=== PATIENT | male | born 1970 | race Caucasian/White ===

== ENCOUNTER 2018-06-05 21:35 | Inpatient (IN) ==
[2018-06-05] MEDS ORDERED: Morphine Inj 4 MG/ML Vial IV.PUSH ONE (21:45)
[2018-06-05] MEDS ORDERED: Sod Chloride 0.9% Inj 1,000 ML IV.CONT SCH (21:45)
[2018-06-05 22:38] LABS: Baso % (Auto) 0.2 % (0.0-2.0); Eos # (Auto) 0.1 th/mm3 (0.0-0.4); Eos % (Auto) 0.9 % (0.0-4.0); Hematocrit 44.1 % (39.0-51.0); Hemoglobin 15.5 gm/dL (13.0-17.0); Lymph # (Auto) 2.9 th/mm3 (1.0-4.8); Lymph % (Auto) 24.4 % (9.0-44.0); Mean Corpuscular HGB Conc 35.1 % (32.0-36.0); Mean Corpuscular Hemoglobin 30.1 pg (27.0-34.0); Mean Corpuscular Volume 85.8 fL (80.0-100.0); Mean Platelet Volume 8.1 fL (7.0-11.0); Mono # (Auto) 0.6 th/mm3 (0.0-0.9); Neut # (Auto) 8.3 th/mm3 (1.8-7.7); Neut % (Auto) 69.5 % (16.0-70.0); Platelet Count 153 th/mm3 (150-450); Red Blood Count 5.14 mil/mm3 (4.50-5.90); Red Cell Distribution Width 13.5 % (11.6-17.2)
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
[2018-06-05 22:50] LABS: INR 1.1 Ratio; Prothrombin Time 11.6 sec (9.8-11.6)
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
[2018-06-05] MEDS ORDERED: Morphine Sulfate Inj 8 MG/ML Vial IV.PUSH ONE (23:22)
[2018-06-05] MEDS ORDERED: Morphine Sulfate Inj 8 MG/ML Vial ONE (23:23)
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
[2018-06-06] MEDS ORDERED: Morphine Inj 4 MG/ML Vial IV.PUSH PRN (02:00)
[2018-06-06] MEDS: Morphine Inj 4 MG/ML Vial IV.PUSH PRN ×6 (02:13→21:57)
[2018-06-06] MEDS ORDERED: Influenza (Quadrivalent) Vaccine 0.5 ML Syringe IM ONE (05:15)
[2018-06-06] MEDS: Pantoprazole Inj 40 MG Vial IV.PUSH SCH (06:56)
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
[2018-06-06] MEDS: Docusate Sodium 100 MG Capsule PO SCH ×2 (08:35→20:00)
[2018-06-06] MEDS: Multivitamin Inj 10 ML, Thiamine Inj 100 MG, Folic Acid Inj 1 MG in Sodium Chlor 0.9% I... IV.SIG SCH (10:39)
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
--- NOTE | 2018-06-06 14:29 | OTSOAPIP ---
TIME SESSION COMPLETED: 1430 TREATMENT TIME: 0 MINS. CHART REVIEWED. SPOKE WITH BEREKET ALBA PATIENT TO REMAIN BEDREST UNTIL NEUROSURGERY CONSULT. WILL REATTEMPT ONCE NEUROSURGERY ASSESSMENT AND RECOMMENDATIONS. Therapist: Poornima Pennington Signature on file
[2018-06-07] MEDS: Morphine Inj 4 MG/ML Vial IV.PUSH PRN ×6 (02:31→22:36)
[2018-06-07] MEDS: Chlorhexidine Gluconate 2% 1 Pack (2 Cloths) TOPICAL SCH (03:36)
[2018-06-07] MEDS ORDERED: Chlorhexidine Gluconate 2% 1 Pack (2 Cloths) TOPICAL PRN (04:00)
[2018-06-07] MEDS: Pantoprazole Inj 40 MG Vial IV.PUSH SCH ×2 (05:20→06:06)
[2018-06-07 05:43] LABS: Baso % (Auto) 0.3 % (0.0-2.0); Eos # (Auto) 0.1 th/mm3 (0.0-0.4); Eos % (Auto) 1.3 % (0.0-4.0); Hemoglobin 14.7 gm/dL (13.0-17.0); Lymph # (Auto) 1.8 th/mm3 (1.0-4.8); Lymph % (Auto) 23.1 % (9.0-44.0); Mean Corpuscular HGB Conc 35.1 % (32.0-36.0); Mean Corpuscular Hemoglobin 30.3 pg (27.0-34.0); Mean Corpuscular Volume 86.6 fL (80.0-100.0); Mean Platelet Volume 8.2 fL (7.0-11.0); Mono # (Auto) 0.6 th/mm3 (0.0-0.9); Mono % (Auto) 7.2 % (0.0-8.0); Neut # (Auto) 5.3 th/mm3 (1.8-7.7); Neut % (Auto) 68.1 % (16.0-70.0); Platelet Count 118 th/mm3 (150-450); Red Blood Count 4.86 mil/mm3 (4.50-5.90); Red Cell Distribution Width 13.4 % (11.6-17.2); White Blood Count 7.8 th/mm3 (4.0-11.0)
[2018-06-07 06:10] LABS: Calcium 8.1 mg/dL (8.5-10.1); Carbon Dioxide 25.1 meq/L (21.0-32.0); Potassium 3.5 meq/L (3.5-5.1)
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
[2018-06-07] MEDS: Docusate Sodium 100 MG Capsule PO SCH ×2 (09:44→21:21)
[2018-06-07] MEDS: Multivitamin Inj 10 ML, Thiamine Inj 100 MG, Folic Acid Inj 1 MG in Sodium Chlor 0.9% I... IV.SIG SCH (10:02)
--- NOTE | 2018-06-07 12:59 | MR ---
EXAM DATE: 06/07/2018 12:41 PM EST AGE/SEX: 47 years / Male INDICATIONS: . Multiple thoracic spine fractures. CLINICAL DATA: This is the patient's subsequent encounter. Patient reports that signs and symptoms h ave been present for 3 days and indicates a pain score of 7/10. MEDICAL/SURGICAL HISTORY: None. . Left foot surgery. Left hand surgery. COMPARISON: [facility] [place], CT THORACIC SPINE W CONTRAST, 06/05/2018. . TECHNIQUE: Multiplanar, multisequence MRI of the thoracic spine was performed. FINDINGS: Sagittal T1 and 2-weighted imaging of the thoracic spine is provided. These demonstrate a moderate se verity compression fracture of T5 with minimal bony retropulsion. There is mild compression fracture of the inferior endplate of T4. There is no associated retropulsion. There is minimal marrow edema wi thin the T3 vertebral body on the STIR imaging sequences as well. The sagittal inversion recovery images do suggest some subtle increased T2 signal within the cord acr oss the level of T5. The posterior longitudinal ligament appears intact crosses level. The anterior longitudinal ligament does appear disrupted across the T4-T5 disc level. The remainder of the thoracic vertebral bodies are intact. The disc appear well hydrated at all level s. Axial imaging through the disc spaces is provided. These again demonstrate the minimal bony retropuls ion at T5. The residual thecal space appears narrowed but adequate. The axial imaging does suggest so me subtle increased T2 signal within the cord through this area. The thecal sac is otherwise unremarkable in appearance throughout the remainder of the levels visuali zed. Note is made of some soft tissue swelling and hemorrhage in the paraspinous soft tissues extending fr om approximately T3 down to T6. CONCLUSION: 1. Moderate severity compression fracture of T5 with some minimal bony retropulsion. There is howeve r some subtle increased T2 signal within the cord across this level. There is only minimal narrowing of the thecal sac. 2. The anterior longitudinal ligament appears disrupted across the T4/T5 level. 3. The STIR imaging sequences demonstrate marrow edema within the T3 and T4 vertebral body. This wou ld suggest mild compression fracture at these levels as well. 4. Swelling and a small amount of hemorrhage in the paraspinous soft tissues. Electronically signed by: Jonas Ham MD 06/07/2018 12:57 PM EST
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
[2018-06-08] MEDS: Morphine Inj 4 MG/ML Vial IV.PUSH PRN ×6 (02:46→20:59)
[2018-06-08] MEDS: Chlorhexidine Gluconate 2% 1 Pack (2 Cloths) TOPICAL SCH (03:21)
[2018-06-08] MEDS ORDERED: Chlorhexidine Gluconate 2% 1 Pack (2 Cloths) TOPICAL ONE (03:38)
[2018-06-08] MEDS ORDERED: Sodium Chlor 0.9% Inj 500 ML IV.SIG SCH (04:00)
[2018-06-08] MEDS: Pantoprazole Inj 40 MG Vial IV.PUSH SCH (06:16)
[2018-06-08] MEDS: Multivitamin Inj 10 ML, Thiamine Inj 100 MG, Folic Acid Inj 1 MG in Sodium Chlor 0.9% I... IV.SIG SCH (08:17)
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
[2018-06-08] MEDS: diazePAM 5 MG Tablet PO SCH ×3 (12:40→20:58)
--- NOTE | 2018-06-08 13:49 | XR ---
EXAM DATE: 06/08/2018 1:46 PM EST AGE/SEX: 47 years / Male INDICATIONS: Fracture. Xray done standing with TLSO brace. CLINICAL DATA: This is the patient's initial encounter. Patient reports that signs and symptoms have been present for 3 days and indicates a pain score of 10/10. MEDICAL/SURGICAL HISTORY: None. None. [place] [facility] [place]. . FINDINGS: Minimal anterior wedging of T4 and T5 in anatomic alignment in the sagittal projection. CONCLUSION: Anatomic alignment sagittal projection while standing. Electronically signed by: Taj Ham MD 06/08/2018 1:47 PM EST
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
[2018-06-08] MEDS: Docusate Sodium 100 MG Capsule PO SCH ×2 (16:34→20:58)
[2018-06-09] MEDS: Morphine Inj 4 MG/ML Vial IV.PUSH PRN ×4 (00:14→20:54)
[2018-06-09] MEDS: Chlorhexidine Gluconate 2% 1 Pack (2 Cloths) TOPICAL SCH (03:00)
[2018-06-09 04:10] LABS: Baso % (Auto) 0.2 % (0.0-2.0); Eos # (Auto) 0.2 th/mm3 (0.0-0.4); Eos % (Auto) 3.1 % (0.0-4.0); Hematocrit 42.5 % (39.0-51.0); Hemoglobin 14.4 gm/dL (13.0-17.0); Lymph # (Auto) 1.5 th/mm3 (1.0-4.8); Lymph % (Auto) 22.4 % (9.0-44.0); Mean Corpuscular HGB Conc 33.8 % (32.0-36.0); Mean Corpuscular Hemoglobin 29.7 pg (27.0-34.0); Mean Corpuscular Volume 87.7 fL (80.0-100.0); Mean Platelet Volume 7.7 fL (7.0-11.0); Mono # (Auto) 0.5 th/mm3 (0.0-0.9); Mono % (Auto) 7.3 % (0.0-8.0); Neut # (Auto) 4.5 th/mm3 (1.8-7.7); Platelet Count 126 th/mm3 (150-450); Red Blood Count 4.85 mil/mm3 (4.50-5.90); Red Cell Distribution Width 13.6 % (11.6-17.2); White Blood Count 6.7 th/mm3 (4.0-11.0)
[2018-06-09 04:38] LABS: Anion Gap 8 meq/L (5-15); Blood Urea Nitrogen 7 mg/dL (7-18); Calcium 8.1 mg/dL (8.5-10.1); Carbon Dioxide 28.9 meq/L (21.0-32.0); Chloride 103 meq/L (98-107); Glomerular Filtration Rate Greater Than 89 mL/min (>89); Glucose,Random 112 mg/dL (74-106); Potassium 3.6 meq/L (3.5-5.1); Sodium 140 meq/L (136-145)
[2018-06-09] MEDS: Pantoprazole Inj 40 MG Vial IV.PUSH SCH (06:00)
[2018-06-09] MEDS: diazePAM 5 MG Tablet PO SCH ×3 (08:20→19:12)
[2018-06-09] MEDS: Docusate Sodium 100 MG Capsule PO SCH ×2 (08:20→20:54)
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
[2018-06-09] MEDS ORDERED: Chlorhexidine 4% Topical 120 APPLIC/120 ML Bottle TOPICAL ONE (11:22)
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
[2018-06-10] MEDS ORDERED: Sodium Chlor 0.9% Inj 500 ML IV.CONT ONE (03:15)
[2018-06-10] MEDS ORDERED: Chlorhexidine Gluconate 2% 1 Pack (2 Cloths) TOPICAL ONE (03:15)
[2018-06-10] MEDS: Chlorhexidine Gluconate 2% 1 Pack (2 Cloths) TOPICAL SCH (04:25)
[2018-06-10] MEDS: Pantoprazole Inj 40 MG Vial IV.PUSH SCH (06:07)
[2018-06-10] MEDS ORDERED: Gelatin Size 100 Topical Foam ONE (07:01)
[2018-06-10] MEDS ORDERED: ceFAZolin 1 GM Premix Inj 2 GM/100 ML FROZ.PIGGY IV.SIG ONE (07:01)
[2018-06-10] MEDS ORDERED: Thrombin Topical Soln 5,000 UNIT Vial TOPICAL ONE (07:01)
[2018-06-10] MEDS ORDERED: Bupivacaine/Epinephrine PF Inj 0.5% 30 ML Vial ONE (07:01)
[2018-06-10] MEDS ORDERED: Vancomycin Inj 1,000 MG in Sodium Chlor 0.9% Inj 250 ML IV.SIG SCH (08:00)
[2018-06-10] MEDS ORDERED: Senna/Docusate Sodium 8.6/50 MG Tablet PO SCH (09:00)
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
[2018-06-10] MEDS: diazePAM 5 MG Tablet PO SCH (09:46)
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
[2018-06-10] MEDS ORDERED: Heparin - SQ 10,000 UNITS/ML Vial ONE (15:19)
[2018-06-10] MEDS ORDERED: fentaNYL Citrate Inj 250 MCG/5 ML Ampul ONE (15:20)
[2018-06-10] MEDS ORDERED: Propofol Inj 500 MG/50 ML Vial ONE ×2 (15:21→19:39)
[2018-06-10] MEDS ORDERED: Bisacodyl 10 MG Supp RECTAL PRN (16:21)
[2018-06-10] MEDS ORDERED: Naloxone Inj 0.4 MG/ML Vial IV.PUSH PRN ×2 (16:23→16:24)
[2018-06-10] MEDS ORDERED: HYDROmorphone PCA Inj 6 MG/30 ML PCA.VIAL PCA PRN (16:24)
[2018-06-10 17:11] LABS: ABG Base Excess 1.4 mmol/L (-2-2); ABG PCO2 46 mmHg (38-42); ABG PO2 75 mmHG (61-120)
[2018-06-10] MEDS ORDERED: Dexmedetomidine Inj 200 MCG/2 ML Vial ONE (17:37)
[2018-06-10] MEDS ORDERED: Dexamethasone Inj 20 MG/5 ML Vial ONE (18:13)
[2018-06-10 20:27] LABS: Hematocrit 40.6 % (39.0-51.0); Hemoglobin 13.6 gm/dL (13.0-17.0)
[2018-06-10] MEDS ORDERED: ceFAZolin 2 GM Premix Inj 2 GM/50 ML PIGGYBACK IV.SIG ONE (20:28)
[2018-06-10 20:33] LABS: ABG Base Excess 0.5 mmol/L (-2-2); ABG PCO2 44 mmHg (38-42); ABG PO2 61 mmHG (61-120)
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
--- NOTE | 2018-06-10 21:50 | XR ---
EXAM DATE: 06/10/2018 9:44 PM EST AGE/SEX: 47 years / Male INDICATIONS: T2-T7 Fusion. CLINICAL DATA: This is the patient's initial encounter. Patient reports that signs and symptoms have been present for 1 day and indicates a pain score of Nonresponsive. MEDICAL/SURGICAL HISTORY: Non-responsive. Non-responsive. COMPARISON: No prior exams available for comparison. FINDINGS: 5 views of the thoracic spine showing posterior longitudinal rods and pedicle screws at multiple leve ls. CONCLUSION: Intraoperative spot images of the thoracic spine showing posterior hardware. Electronically signed by: Chris Lopes MD 06/10/2018 9:48 PM EST
[2018-06-10] MEDS: Sod Chloride 0.9% Inj 1,000 ML IV.CONT SCH (22:00)
[2018-06-10] MEDS ORDERED: HYDROmorphone PF Inj 2 MG/ML Vial ONE (22:08)
[2018-06-10] MEDS ORDERED: fentaNYL Citrate Inj 100 MCG/2 ML Ampul ONE (22:14)
[2018-06-10] MEDS ORDERED: *morphine SULFATE 10 MG/ML PERIprocedure ONLY ONE (22:20)
--- NOTE | 2018-06-10 22:20 | XR ---
EXAM DATE: 06/10/2018 10:12 PM EST AGE/SEX: 47 years / Male INDICATIONS: Status post intubation. CLINICAL DATA: This is the patient's initial encounter. Patient reports that signs and symptoms have been present for 1 day and indicates a pain score of Nonresponsive. MEDICAL/SURGICAL HISTORY: Non-responsive. Non-responsive. COMPARISON: [facility], CHEST 1V SINGLE AP, 06/05/2018. . FINDINGS: The patient is intubated, but the location of the tip of the endotracheal tube is obscured by the hilda dware in the thoracic spine and mild patient rotation towards the left superimposing the trachea on t he left sided hardware. The right lung is clear. Patchy infiltrates with partial consolidation presen t in the left lower lung. The left hemidiaphragm CONCLUSION: 1. Location of the tip of the endotracheal tube cannot be determined due to superimposition of the m etallic left thoracic hardware over the trachea. 2. Left lower lobe partially consolidative infiltrates. Electronically signed by: Yo Alonzo MD 06/10/2018 10:19 PM EST
[2018-06-10 22:27] LABS: ABG Base Excess 0.6 mmol/L (-2-2); ABG PCO2 45 mmHg (38-42); ABG PO2 64 mmHG (61-120)
[2018-06-10 23:09] LABS: Baso % (Auto) 0.2 % (0.0-2.0); Eos % (Auto) 0.1 % (0.0-4.0); Hematocrit 38.8 % (39.0-51.0); Hemoglobin 13.3 gm/dL (13.0-17.0); Lymph # (Auto) 0.4 th/mm3 (1.0-4.8); Lymph % (Auto) 3.2 % (9.0-44.0); Mean Corpuscular HGB Conc 34.1 % (32.0-36.0); Mean Corpuscular Hemoglobin 29.7 pg (27.0-34.0); Mean Corpuscular Volume 87.2 fL (80.0-100.0); Mean Platelet Volume 7.3 fL (7.0-11.0); Mono # (Auto) 0.3 th/mm3 (0.0-0.9); Mono % (Auto) 2.4 % (0.0-8.0); Neut # (Auto) 10.9 th/mm3 (1.8-7.7); Neut % (Auto) 94.1 % (16.0-70.0); Platelet Count 136 th/mm3 (150-450); Red Blood Count 4.45 mil/mm3 (4.50-5.90); Red Cell Distribution Width 13.7 % (11.6-17.2); White Blood Count 11.6 th/mm3 (4.0-11.0)
[2018-06-10] MEDS: Propofol 1000 mg/100 ml Inj 1,000 MG/100 ML BOTTLE IV.CONT PRN (23:30)
[2018-06-10 23:31] LABS: Anion Gap 9 meq/L (5-15); Blood Urea Nitrogen 14 mg/dL (7-18); Calcium 7.7 mg/dL (8.5-10.1); Carbon Dioxide 25.7 meq/L (21.0-32.0); Chloride 105 meq/L (98-107); Glomerular Filtration Rate Greater Than 89 mL/min (>89); Glucose,Random 171 mg/dL (74-106); Potassium 4.1 meq/L (3.5-5.1); Sodium 140 meq/L (136-145)
[2018-06-10 23:55] LABS: ABG Base Excess 0.7 mmol/L (-2-2); ABG PCO2 44 mmHg (38-42); ABG PO2 68 mmHg (61-120)
[2018-06-11] MEDS: fentaNYL 10 mcg/mL Premix Drip 2,500 MCG/250 ML BAG IV.SIG PRN ×2 (00:35→22:51)
[2018-06-11] MEDS: diazePAM 5 MG Tablet PO SCH ×3 (02:06→20:25)
[2018-06-11] MEDS: Senna/Docusate Sodium 8.6/50 MG Tablet PO SCH ×3 (02:06→20:23)
[2018-06-11] MEDS: Propofol 1000 mg/100 ml Inj 1,000 MG/100 ML BOTTLE IV.CONT PRN ×7 (02:38→23:44)
[2018-06-11 03:11] LABS: Baso % (Auto) 0.1 % (0.0-2.0); Hemoglobin 13.6 gm/dL (13.0-17.0); Lymph # (Auto) 0.8 th/mm3 (1.0-4.8); Lymph % (Auto) 5.7 % (9.0-44.0); Mean Corpuscular HGB Conc 35.7 % (32.0-36.0); Mean Corpuscular Hemoglobin 30.5 pg (27.0-34.0); Mean Corpuscular Volume 85.3 fL (80.0-100.0); Mean Platelet Volume 7.5 fL (7.0-11.0); Mono # (Auto) 0.5 th/mm3 (0.0-0.9); Mono % (Auto) 3.3 % (0.0-8.0); Neut # (Auto) 12.3 th/mm3 (1.8-7.7); Neut % (Auto) 90.9 % (16.0-70.0); Platelet Count 146 th/mm3 (150-450); Red Blood Count 4.46 mil/mm3 (4.50-5.90); Red Cell Distribution Width 13.2 % (11.6-17.2); White Blood Count 13.5 th/mm3 (4.0-11.0)
[2018-06-11 03:27] LABS: Anion Gap 7 meq/L (5-15); Blood Urea Nitrogen 12 mg/dL (7-18); Calcium 8.1 mg/dL (8.5-10.1); Chloride 107 meq/L (98-107); Glomerular Filtration Rate Greater Than 89 mL/min (>89); Glucose,Random 145 mg/dL (74-106); Magnesium 2.2 mg/dL (1.5-2.5); Phosphorus 3.1 mg/dL (2.5-4.9); Potassium 4.6 meq/L (3.5-5.1); Sodium 140 meq/L (136-145)
--- NOTE | 2018-06-11 03:59 | XR ---
EXAM DATE: 06/11/2018 3:31 AM EST AGE/SEX: 47 years / Male INDICATIONS: Respiratory failure. CLINICAL DATA: This is the patient's subsequent encounter. Patient reports that signs and symptoms h ave been present for 4 - 6 days and indicates a pain score of Nonresponsive. MEDICAL/SURGICAL HISTORY: Non-responsive. Non-responsive. COMPARISON: [facility] [place], CHEST 1V SINGLE AP, 06/10/2018. . FINDINGS: Single view the chest demonstrates the thoracic vertebral posterior rods are in good position. There is consolidation both in the right lung base and left lower lobe. There is a small left pleural effus ion. There is no visible pneumothorax. CONCLUSION: Spinal hardware in good position of the upper thoracic spine. A combination of bibasilar atelectasis or infiltrates left greater than right unchanged Electronically signed by: Reinaldo Cantor MD 06/11/2018 3:58 AM EST
[2018-06-11] MEDS: ceFAZolin 2 GM Premix Inj 2 GM/50 ML PIGGYBACK IV.SIG SCH ×3 (04:06→20:23)
[2018-06-11 05:56] LABS: ABG Base Excess 0.6 mmol/L (-2-2); ABG PCO2 40 mmHg (38-42); ABG PO2 94 mmHg (61-120)
[2018-06-11] MEDS ORDERED: Potassium Chlor 20 mEq Premix 20 MEQ/100 ML PIGGYBACK IV.SIG PRN ×2 (06:52)
[2018-06-11] MEDS ORDERED: Potassium Chlor 40 mEq Premix 40 MEQ/100 ML PIGGYBACK IV.SIG PRN ×2 (06:52)
[2018-06-11] MEDS ORDERED: Magnesium Sulfate Inj 4 GM in Sodium Chlor 0.9% Inj 92 ML IV.SIG PRN (06:52)
[2018-06-11] MEDS ORDERED: Potassium Phosphate 500 MG Soluble Tablet PO PRN ×2 (06:52)
[2018-06-11] MEDS ORDERED: Sodium Phosphate Inj 30 MMOL in Sodium Chlor 0.9% Inj 250 ML IV.SIG PRN (06:52)
[2018-06-11] MEDS ORDERED: Potassium Phosphate Inj 30 MMOL in Sodium Chlor 0.9% Inj 250 ML IV.SIG PRN (06:52)
[2018-06-11] MEDS ORDERED: Magnesium Oxide 400 MG Tablet PO PRN (06:52)
[2018-06-11] MEDS ORDERED: Magnesium Sulfate Inj 2 GM in Sodium Chlor 0.9% Inj 96 ML IV.SIG PRN (06:52)
[2018-06-11] MEDS ORDERED: Potassium Chloride 25 MEQ Effervescent Tablet PO PRN (06:52)
[2018-06-11] MEDS: Chlorhexidine 0.12% Oral Kit 15 ML UDC OROPHARYNG SCH ×2 (08:16→19:44)
[2018-06-11] MEDS: Pantoprazole Inj 40 MG Vial IV.PUSH SCH (08:17)
[2018-06-11] MEDS: Sod Chloride 0.9% Inj 1,000 ML IV.CONT SCH ×3 (09:00→21:31)
[2018-06-11] MEDS: Oral Hygiene Kit OROPHARYNG SCH ×3 (12:15→23:42)
--- NOTE | 2018-06-12 00:04 | XR ---
EXAM DATE: 06/11/2018 11:59 PM EST AGE/SEX: 47 years / Male INDICATIONS: Manipulation of the E-T tube. CLINICAL DATA: This is the patient's subsequent encounter. Patient reports that signs and symptoms h ave been present for 4 - 6 days and indicates a pain score of Nonresponsive. MEDICAL/SURGICAL HISTORY: Non-responsive. Fusion, thoracic. COMPARISON: [facility], CHEST 1V SINGLE AP, 06/11/2018. . FINDINGS: The patient's had previous is mild bibasilar atelectasis. No visible pneumothorax. Heart and mediasti num are unremarkable. Thoracic spinal fixation. CONCLUSION: Mild bibasilar atelectasis unchanged. ET tube and NG tube both in good position Electronically signed by: Reinaldo Cantor MD 06/12/2018 12:03 AM EST
[2018-06-12] MEDS: Propofol 1000 mg/100 ml Inj 1,000 MG/100 ML BOTTLE IV.CONT PRN ×2 (03:03→06:39)
[2018-06-12 03:26] LABS: Baso # (Auto) 0.1 th/mm3 (0.0-0.2); Baso % (Auto) 0.7 % (0.0-2.0); Eos # (Auto) 0.1 th/mm3 (0.0-0.4); Eos % (Auto) 0.8 % (0.0-4.0); Hematocrit 35.3 % (39.0-51.0); Hemoglobin 12.3 gm/dL (13.0-17.0); Lymph # (Auto) 1.9 th/mm3 (1.0-4.8); Lymph % (Auto) 19.1 % (9.0-44.0); Mean Corpuscular HGB Conc 34.9 % (32.0-36.0); Mean Corpuscular Hemoglobin 30.2 pg (27.0-34.0); Mean Corpuscular Volume 86.7 fL (80.0-100.0); Mean Platelet Volume 7.6 fL (7.0-11.0); Mono # (Auto) 0.8 th/mm3 (0.0-0.9); Mono % (Auto) 7.6 % (0.0-8.0); Neut # (Auto) 7.3 th/mm3 (1.8-7.7); Neut % (Auto) 71.8 % (16.0-70.0); Platelet Count 149 th/mm3 (150-450); Red Blood Count 4.08 mil/mm3 (4.50-5.90); Red Cell Distribution Width 13.8 % (11.6-17.2); White Blood Count 10.1 th/mm3 (4.0-11.0)
[2018-06-12] MEDS: Oral Hygiene Kit OROPHARYNG SCH ×3 (03:35→18:56)
[2018-06-12 03:42] LABS: Albumin 2.9 g/dL (3.4-5.0); Anion Gap 7 meq/L (5-15); Aspartate Aminotransferase 96 U/L (15-37); Blood Urea Nitrogen 16 mg/dL (7-18); Calcium 7.9 mg/dL (8.5-10.1); Carbon Dioxide 26.2 meq/L (21.0-32.0); Chloride 109 meq/L (98-107); Glomerular Filtration Rate Greater Than 89 mL/min (>89); Glucose,Random 114 mg/dL (74-106); Potassium 3.9 meq/L (3.5-5.1); Sodium 142 meq/L (136-145)
[2018-06-12 03:45] LABS: Alanine Aminotransferase 50 U/L (12-78); Alkaline Phosphatase 69 U/L (45-117); Total Protein 6.1 g/dL (6.4-8.2)
[2018-06-12 05:46] LABS: ABG Base Excess 1.2 mmol/L (-2-2); ABG PCO2 33 mmHg (38-42); ABG PO2 110 mmHg (61-120)
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
[2018-06-12] MEDS ORDERED: Bisacodyl 10 MG Supp RECTAL ONE (07:47)
[2018-06-12] MEDS: Chlorhexidine 0.12% Oral Kit 15 ML UDC OROPHARYNG SCH (08:19)
[2018-06-12] MEDS: Sod Chloride 0.9% Inj 1,000 ML IV.CONT SCH (08:20)
[2018-06-12] MEDS: Enoxaparin Inj 40 MG/0.4 ML Syringe SQ SCH (09:08)
[2018-06-12] MEDS: Senna/Docusate Sodium 8.6/50 MG Tablet PO SCH ×2 (09:08→20:11)
[2018-06-12] MEDS: Pantoprazole Inj 40 MG Vial IV.PUSH SCH (09:09)
[2018-06-12] MEDS: fentaNYL 10 mcg/mL Premix Drip 2,500 MCG/250 ML BAG IV.SIG PRN (09:35)
[2018-06-12] MEDS ORDERED: Dexmedetomidine Inj 200 MCG in Sodium Chlor 0.9% Inj 50 ML IV.CONT PRN (10:04)
[2018-06-12] MEDS ORDERED: RASS Change Order MISCELLANE ONE (12:00)
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
[2018-06-12] MEDS: Morphine Sulfate Inj 2 MG/ML Vial IV.PUSH PRN ×2 (12:45→18:23)
[2018-06-12] MEDS: oxyCODONE/Acetaminophen 10/325 Tablet PO PRN ×3 (13:14→23:29)
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
[2018-06-12] MEDS: diazePAM 5 MG Tablet PO SCH (20:11)
[2018-06-13] MEDS: Oral Hygiene Kit OROPHARYNG SCH ×4 (00:26→19:14)
[2018-06-13 04:22] LABS: Baso % (Auto) 0.3 % (0.0-2.0); Eos # (Auto) 0.1 th/mm3 (0.0-0.4); Eos % (Auto) 0.7 % (0.0-4.0); Hematocrit 36.2 % (39.0-51.0); Hemoglobin 12.6 gm/dL (13.0-17.0); Lymph # (Auto) 1.4 th/mm3 (1.0-4.8); Lymph % (Auto) 13.7 % (9.0-44.0); Mean Corpuscular HGB Conc 34.7 % (32.0-36.0); Mean Corpuscular Hemoglobin 30.1 pg (27.0-34.0); Mean Corpuscular Volume 86.9 fL (80.0-100.0); Mean Platelet Volume 7.6 fL (7.0-11.0); Mono # (Auto) 0.8 th/mm3 (0.0-0.9); Mono % (Auto) 7.7 % (0.0-8.0); Neut % (Auto) 77.6 % (16.0-70.0); Platelet Count 148 th/mm3 (150-450); Red Blood Count 4.17 mil/mm3 (4.50-5.90); Red Cell Distribution Width 13.5 % (11.6-17.2); White Blood Count 10.3 th/mm3 (4.0-11.0)
[2018-06-13 04:52] LABS: Anion Gap 4 meq/L (5-15); Aspartate Aminotransferase 127 U/L (15-37); Blood Urea Nitrogen 11 mg/dL (7-18); Calcium 8.6 mg/dL (8.5-10.1); Carbon Dioxide 29.8 meq/L (21.0-32.0); Chloride 106 meq/L (98-107); Glomerular Filtration Rate Greater Than 89 mL/min (>89); Glucose,Random 121 mg/dL (74-106); Potassium 3.8 meq/L (3.5-5.1); Sodium 140 meq/L (136-145)
[2018-06-13 04:53] LABS: Alanine Aminotransferase 68 U/L (12-78)
[2018-06-13 04:55] LABS: Alkaline Phosphatase 93 U/L (45-117); Total Protein 6.9 g/dL (6.4-8.2)
[2018-06-13] MEDS: oxyCODONE/Acetaminophen 10/325 Tablet PO PRN ×2 (08:02→14:06)
[2018-06-13] MEDS: Senna/Docusate Sodium 8.6/50 MG Tablet PO SCH (08:26)
[2018-06-13] MEDS: Pantoprazole Inj 40 MG Vial IV.PUSH SCH (09:02)
[2018-06-13] MEDS: Enoxaparin Inj 40 MG/0.4 ML Syringe SQ SCH (09:02)
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
[2018-06-13] MEDS: Morphine Sulfate Inj 2 MG/ML Vial IV.PUSH PRN ×2 (11:30→14:38)
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
[2018-06-13 17:03] VITALS: BP 126/60; PULSE 91; RESP 16; TEMP 98.4; O2SAT 93
== END 2018-06-13 17:01 | disposition home or self-care (01) ==
LOC: NEPC 21:35 → NEDA 23:20 → N06 06-06 01:35 → N03 06-10 20:17
PROVIDERS: ADMIT Surgery; ATTEND Surgery